=== PATIENT | female | born 1950 | race Caucasian/White ===

== ENCOUNTER → 2017-08-21 | Outpatient (CLI) | payer MEDICARE, OTHER ==
[~2017-08-21] MED LIST: ASPIR 8181 MG PO; CYCLOBENZAPRINE5 MG PO; NEXIUM PO; PANTOPRAZOLE SO40 MG PO
--- NOTE | 2017-08-22 10:09 | Diagnostic Imaging Report ---
Exam: Lumbar spine MRI without IV contrast History: Low back pain, spondylolisthesis Comparison studies: Included lumbar spine from abdomen pelvis CT of 07/04/2015. Previous lumbar spine MRI of 06/06/2012 is not available on the PACS for comparison. Technique: Sagittal and axial T2 , sagittal T1 and IR, axial spin density oblique. Intravenous contrast: None Findings: Number of lumbar vertebral bodies: 5. Alignment: Normal lumbar lordosis. No significant scoliosis. Minimal anterolisthesis of L4 on L5, unchanged. Soft tissues: Chronic postsurgical changes in the dorsal lumbar soft tissues at L5-S1. Paraspinal muscles: Mild symmetric atrophy from T11 through L3. Severe symmetric atrophy from L4 through the sacrum. Lower thoracic cord: Normal in signal and morphology. The tip of the conus is at L1-L2 . Cauda equina: The nerve roots are peripherally positioned within the thecal sac at L5-S1 which may reflect sequela of chronic arachnoiditis/adhesions (similar findings were reported on the previous lumbar spine MRI of 06/06/2012). Vertebrae: No compression fractures, infection or neoplasm. Scattered Schmorl's nodes along the endplates from from the inferior T9 endplate to the level of the superior L4 endplate. Degenerative changes: There is loss of T2/STIR disc signal at T9-T10 and from T12 through S1. L1-L2: Patent canal and foramina. L2-L3: Symmetric disc bulge does not result in canal stenosis. Patent foramina. L3-L4: Mild loss of disc height. Disc bulge slightly asymmetric to the right and facet arthrosis result in mild right foraminal stenosis. No significant canal or left foraminal stenosis. L4-L5: Mild loss of disc height. Minimal grade 1 degenerative anterolisthesis of L4 and L5 with associated uncovered disc/disc bulge with superimposed small central disc protrusion, thickened ligamenta flava and moderate bilateral facet arthrosis result in moderate moderate canal stenosis without significant foraminal stenosis. Mild T2 hyperintense changes at the facets related to synovitis. L5-S1: Severe loss of disc height. Disc osteophyte complex and mild facet arthrosis with mild bilateral foraminal stenosis. Canal has been surgically decompressed by laminotomies. IMPRESSION: 1. Severe L5-S1 disc degeneration. Remaining lumbar discs are mildly degenerated. 2. Mild to moderate degenerative canal stenosis with moderate facet arthrosis at L4-L5. 3. Severely degenerated disc with mild bilateral foraminal stenosis and decompressive laminotomies at L5-S1 without canal stenosis. 4. Probable adhesions of the cauda equina nerve roots at L5-S1 are unchanged. Signed by: Dr. Stephen Johnson M.D. on 08/22/2017 10:05 AM
== END ==
LOC: MRI 09:39
PROVIDERS: ATTEND Family Medicine
DX: M54.5 Low back pain (principal); M47.26 Other spondylosis with radiculopathy, lumbar region
CPT/HCPCS: 72148

== ENCOUNTER 2019-03-24 12:26 | Outpatient (RCR) | payer MEDICARE, OTHER ==
--- NOTE | 2019-03-24 13:30 | NUR ---
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 Pt with chronic back pain secondary to Spina Bifida. The order was for a cognitive evaluation to be completed to assist pt in acquiring a Speech Generating device. 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 Pt c/o level 3 in back pain, had no family present and was alert and cooperative during the evaluation. The pt had not taken pain medication, she uses a TENS unit for pain relief. The pt has been educated by the [employer], her last exposure with an [employer] being 1967 and 1987. The evaluation was conducted in [employer] office using large computer screen and the font at 24 points. The [employer] typed questions and the pt typed answers. Pt was seen with no family present. Oral motor skills functional. Patient tolerates room air. PO intake is functional. Patient spoke with approximately 50% intelligibility, used non-verbal communication and wrote or pointed to paperwork to communicate. Provided extensive education re: reason for evaluation and this [employer] inability to assist with learning how to use Speech Generating device. Pt indicated understanding. Pt partially completed the short form of the Crash Inventory, time was delayed for need to type questions/answers in real time to simulate use of the device. Pt noted to have functional immediate/recent/remote memory/spatial orientation/orientation to environment/recall of general information/problem solving and abstract reasoning/organization/retention. Pt types her answers and is quite literal in her answers as to be expected with by a person who has learned language without hearing or learned to process language with a hearing impairment. Several questions required clarification by [employer] and were re-typed using different verbiage resulting in appropriate responses. Impressions: Pt with severe expressive oral language deficits requiring repetition and multiple modalities to accurately communicate with an unfamiliar listener. Pt with functional reading and typing skills, handwriting legible, slow to write. Due to the nature and length of the pts diagnosis there is little communication improvement expected. 50% of what the pt spoke was misunderstood to an unfamiliar listener. Pts cognitive abilities are functional and again, repetition/clarification may be required to accurately communicate ideas/needs. Pt processes language with literal meaning. Pt can communicate with written language with minimal re-directing. Pt can type quickly and accurately with adequate grammar and punctuation. Pt is an excellent candidate for use of Speech Generating Device to aid in her everyday communication; she is a quick learner and is comfortable with technology. I believe this device will greatly aid in completion of her activities of daily living and public and in personal communication. Recommendations: 1. Use of Speech Generating device for communication enhancement, safety, and improved independence. 2.Scheduled meeting with the product trainer to develop a plan of care to teach the use of this speech generating device with an appropriately trained individual as this visit covered the cognitive evaluation. Thank you for allowing me to assist this pt. Deedee Cortés M.S. [facility] Date of Session: 03/24/19 Cognitive Evaluation for Speech Generating Device X 90 minutes
== END 2019-04-10 ==
LOC: ST 12:26
PROVIDERS: ATTEND Internal Medicine
DX: H91.3 Deaf nonspeaking, not elsewhere classified (principal)
CPT/HCPCS: 92523